=== PATIENT | female | born 1970 | race Caucasian/White ===

== ENCOUNTER → 2021-07-06 15:45 | Outpatient (BNVA) | payer OTHER, SELFPAY | PROVIDERS: Family Provider Family Medicine; Visit Provider Nurse Practitioner | DX: R10.9 Unspecified abdominal pain (principal) | CPT/HCPCS: 82150; 83690; 84450; 84460; 85025 ==

== ENCOUNTER 2021-07-19 13:23 | Outpatient (CLI) | payer OTHER, SELFPAY ==
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
== END 2021-07-19 13:24 | disposition home or self-care (01) ==
PROVIDERS: PCP Family Medicine; Visit Provider Family Medicine
DX: M47.812 Spondylosis without myelopathy or radiculopathy, cervical region (principal); Z87.828 Personal history of other (healed) physical injury and trauma; M47.813 Spondylosis without myelopathy or radiculopathy, cervicothoracic region; M25.78 Osteophyte, vertebrae
CPT/HCPCS: 72125

== ENCOUNTER → 2021-08-03 13:37 | Outpatient (BNVA) | payer OTHER, SELFPAY | PROVIDERS: PCP Family Medicine; Referring Provider Family Medicine; Visit Provider Orthopaedic Surgery | DX: M47.812 Spondylosis without myelopathy or radiculopathy, cervical region (principal) | CPT/HCPCS: 72050 ==

== ENCOUNTER → 2021-08-22 15:34 | Outpatient (BNVA) | payer OTHER, SELFPAY | PROVIDERS: PCP Family Medicine; Visit Provider Emergency Medicine | DX: Z20.822 Contact with and (suspected) exposure to COVID-19 (principal) | CPT/HCPCS: 87635 ==

== ENCOUNTER 2021-09-06 00:20 | Emergency (ER) | payer OTHER, SELFPAY ==
[2021-09-06 00:29] VITALS: BP 133/82; PULSE 102; RESP 16; TEMP 36.2; O2SAT 100; BMI 32.9
--- NOTE | 2021-09-06 01:57 | W.ED.ABDPA2 ---
HPI - Abdominal Pain General: Chief Complaint: Abdominal Pain Stated Complaint: severe abd pain, vomiting Time Seen by Provider: 09/06/21 01:32 Source: patient Mode of arrival: ambulatory Limitations: no limitations History of Present Illness: HPI narrative: 51-year-old female states she has been having chronic abdominal pain for 3 years. She states that she has any sudden sharp pains in her right upper abdomen the last roughly an hour usually has a vomiting episode that resolved states she had a pain today that was severe doubled her over states she did vomit only here and her pain is since resolved she denies any pain currently she states she saw Dr. Smith in the past had a cholecystectomy roughly 3 years ago she is also had an EGD normal stable throughout the cause of her pain. She denies any diarrhea. Associated Symptoms: Denies chills, dysuria and fever(s) Review of Systems Const: Denies: fever(s), chills, body aches or change in appetite Eyes: Denies: blurry vision or eye discomfort ENMT: Denies: throat pain or dental pain Card: Denies: chest pain Resp: Denies: dyspnea GI: Reports: abdominal pain : Denies: dysuria Musc: Denies: neck pain or back pain Skin/Breast: Denies: rash Neuro: Denies: headache(s) Psych: Denies: depression Abdiel/Lymph: Denies: easy bruising All/Imm: Denies: urticaria PFSH ED PFSH: Medical History Degenerative joint disease of cervical spine Right upper quadrant abdominal pain Surgical History History of cholecystectomy History of lumpectomy Social History Smoking and tobacco status: never smoked Alcohol intake: never Adopted: No Caregiver/support person: Yes Lives independently: Yes Household members: spouse Housing: House Marital status: Number of children: 2 Highest education level completed: Professional Degree (, DO, TENA, DVM, DDS, DPM, etc) Current occupational status: employed Current gender identity: Female Physical Exam Const: COMMON NORMALS: no acute distress, patient oriented x3 and healthy appearing HENMT: COMMON NORMALS: normocephalic and atraumatic HEAD & SCALP: normocephalic and atraumatic Eye: COMMON NORMALS: Equal, round and reactive pupils present and EOMs intact bilaterally PUPIL: Yes Equal, round and reactive pupils present Neck/C-Spine: COMMON NORMALS: full ROM and supple Chest: COMMONS NORMALS: normal inspection of the chest and normal palpation of entire chest wall Resp: COMMON NORMALS: normal respiratory effort, No retractions, No use of accessory muscles and clear to auscultation bilaterally AUSCULTATION: clear to auscultation bilaterally Cardio: COMMON NORMALS: regular rate, regular rhythm and No murmurs present (Cardio) RATE: regular rate RHYTHM: regular rhythm GI: COMMON NORMALS: Normal to inspection, nondistended, normoactive bowel sounds present, Soft to palpation, non-tender and no masses PALPATION: Yes Soft to palpation Extremity: COMMON NORMALS: normal to inspection and full ROM Neuro: COMMON NORMALS: patient oriented x3, moves all extremities and no focal motor deficits Psych: COMMON NORMALS: mental status grossly normal, Normal thought process present and cooperative THOUGHT PROCESS: Normal thought process present Skin: COMMON NORMALS: no rashes or lesions noted and no wounds GENERAL SKIN EXAM: no rashes or lesions noted Course Vital Signs: Vital signs: Vital Signs Temperature 97.2 F L 09/06/21 00:29 Pulse Rate 102 H 09/06/21 00:29 Respiratory Rate 16 09/06/21 00:29 Blood Pressure 133/82 09/06/21 00:29 Pulse Oximetry 100 12 00:29 MDM - Abdominal Pain MDM Narrative: Medical decision making narrative: Patient presents with abdominal pain has been chronic in nature for over 3 years patient is refusing lab draws or any imaging at this time she states her pain is completely resolved states she just like a referral back to Dr. Smith I tried to talk her into at least blood work but she states she is no longer in pain she been doing at the 3 areas and now she is pain-free she rather go home and follow-up with surgeon we'll put in a referral to Dr. Smith she is return if worsening she understands agrees to plan. Discharge Plan Discharge Patient Disposition: Home Clinical Impression: Abdominal pain Qualifiers: Abdominal location: generalized Qualified Code(s): R10.84 - Generalized abdominal pain Condition: Stable Prescriptions: No Action cold meds PO RF: 0 albuterol sulfate 90 mcg/actuation HFA aerosol inhaler 2 puff inhalation Q6H PRN (Reason: shortness of breath or wheezing) Qty: 8.5 RF: 0 cyclobenzaprine 10 mg tablet 10 mg PO BID 30 Days Qty: 60 RF: 5 Discharge Orders: Discharge ED (Routine); Ordered 09/06/21 Ordered By: Mikayla Strauss Referrals: Edwar Vora MD [Primary Care Provider] - Augusto Smith MD [Physician] - 1-3 days Discharge Diet: Advance as tolerated Discharge Activity: Resume usual activity Patient Instructions: Abdominal Pain (ED) Coding Level of Care Code ED Cad Detailer for Chg Fwd Exam Comprehensive
[2021-09-06 02:32] VITALS: BP 133/82; PULSE 102; RESP 16; TEMP 36.2; O2SAT 100
== END 2021-09-06 02:35 | disposition home or self-care (01) ==
PROVIDERS: Emergency Provider Emergency Medicine; PCP Family Medicine
DX: R10.84 Generalized abdominal pain (principal)
CPT/HCPCS: 99281

== ENCOUNTER 2021-09-11 08:04 | Outpatient (CLI) | payer OTHER, SELFPAY ==
--- NOTE | 2021-09-11 08:00 | MR_ITS ---
WS: [id number] MRI CERVICAL SPINE NONCONTRAST TECHNIQUE: Sagittal T1, T2 and STIR imaging. Axial T2, gradient, and fiesta imaging. CLINICAL INFORMATION: Z87.828 - Personal history of other (healed) physical inj... COMPARISON: CT July 19, 2021 FINDINGS: Some images degraded by motion artifact. Normal cervical alignment. Cord signal is normal. No high-grade central canal stenosis. C2-C3: Normal. C3-C4: Mild left and no significant right foraminal narrowing. Spinal canal is patent. Mild facet art hropathy. C4-C5: Mild disc osteophytic ridging. Mild left foraminal narrowing. Mild facet arthropathy. Spinal c anal is patent. C5-C6: Mild disc osteophyte complex with endplate ridging. Mild bilateral bony foraminal narrowing. M ild facet arthropathy. Spinal canal is patent. C6-C7: Mild left and no significant right foraminal narrowing. Spinal canal is patent. C7-T1: Normal. Visualized brain stem structures: Normal. Prevertebral soft tissues: Normal. MR/MR cervical spin wo con* [id number] IMPRESSION: 1. Normal cervical alignment. No high-grade central canal narrowing. Cord sign al is normal. 2. Minimal tiny central disc osteophyte complexes at C4-C5 and C5-C6. Spinal c anal is patent. 3. Mild bony foraminal narrowing worse at left C3-4, left C4-5, bilateral C5-6 . 4. Mild to moderate facet arthropathy C4-C5 and C5-C6.
== END 2021-09-11 08:05 | disposition home or self-care (01) ==
LOC: RADSHAW 08:07
PROVIDERS: PCP Family Medicine; Visit Provider Orthopaedic Surgery
DX: M47.812 Spondylosis without myelopathy or radiculopathy, cervical region (principal); Z87.828 Personal history of other (healed) physical injury and trauma; M25.78 Osteophyte, vertebrae
CPT/HCPCS: 72141

== ENCOUNTER 2021-10-18 06:00 | Outpatient (RCR) | payer OTHER, SELFPAY | END 2021-10-30 23:59 | disposition home or self-care (01) | LOC: APT 06:00 | PROVIDERS: PCP Family Medicine; Referring Provider Physician Assistant; Visit Provider Physician Assistant | DX: M54.50 Low back pain, unspecified (principal) | CPT/HCPCS: 97110; 97140; 97163 ==

== ENCOUNTER → 2022-11-12 10:51 | Outpatient (BNVA) | payer OTHER, SELFPAY | PROVIDERS: PCP Family Medicine; Visit Provider Nurse Practitioner Family | DX: M25.40 Effusion, unspecified joint (principal); R29.898 Other symptoms and signs involving the musculoskeletal system | CPT/HCPCS: 80053; 80061; 84443; 85025; 85651; 86140; 86160; 86162; 86235; 86255; 86376; 86431 ==

== ENCOUNTER → 2022-12-24 12:25 | Outpatient (BNVA) | payer OTHER, SELFPAY | PROVIDERS: PCP Family Medicine; Visit Provider Internal Medicine Rheumatology | DX: M19.90 Unspecified osteoarthritis, unspecified site (principal); Z79.899 Other long term (current) drug therapy; Z11.59 Encounter for screening for other viral diseases | CPT/HCPCS: 36415; 86200; 86480; 86704; 86803; 87340 ==

== ENCOUNTER → 2023-07-17 08:33 | Outpatient (BNVA) | payer OTHER, SELFPAY | PROVIDERS: PCP Family Medicine; Visit Provider Internal Medicine Rheumatology | DX: M19.90 Unspecified osteoarthritis, unspecified site (principal); Z79.899 Other long term (current) drug therapy; M06.041 Rheumatoid arthritis without rheumatoid factor, right hand; M06.042 Rheumatoid arthritis without rheumatoid factor, left hand | CPT/HCPCS: 80076; 82306; 82565; 85025; 86140 ==

== ENCOUNTER 2023-08-13 12:57 | Outpatient (CLI) | payer OTHER, SELFPAY ==
--- NOTE | 2023-08-13 13:00 | MM_ITS ---
WS: [id number] BILATERAL 3D TOMOSYNTHESIS DIGITAL SCREENING MAMMOGRAPHY WITH CAD CLINICAL INFORMATION: SCREENING HISTORY: Screening mammogram. No current complaints. COMPARISON: 2018 TECHNIQUE: Bilateral CC and MLO views. FINDINGS: Scattered fibroglandular densities bilaterally. No suspicious focal mass, asymmetry, calcifications, or architectural distortion. No evidence of malignancy. IMPRESSION: MM/[place] [id number] BI-RADS: 1-Negative FOLLOW UP: 1 Year Follow-up Recommend return to annual screening mammography.
== END 2023-08-13 12:58 | disposition home or self-care (01) ==
LOC: MOBLMAM 13:05
PROVIDERS: PCP Nurse Practitioner Family; Visit Provider Nurse Practitioner Family
DX: Z12.31 Encounter for screening mammogram for malignant neoplasm of breast (principal)
CPT/HCPCS: 77063; 77067

== ENCOUNTER → 2023-09-18 14:51 | Outpatient (BNVA) | payer OTHER, SELFPAY | PROVIDERS: PCP Nurse Practitioner Family; Visit Provider Internal Medicine Rheumatology | DX: Z79.899 Other long term (current) drug therapy (principal); M06.041 Rheumatoid arthritis without rheumatoid factor, right hand; M06.042 Rheumatoid arthritis without rheumatoid factor, left hand; R76.8 Other specified abnormal immunological findings in serum; M47.812 Spondylosis without myelopathy or radiculopathy, cervical region | CPT/HCPCS: 36415; 80076; 82565; 85025; 86140 ==

== ENCOUNTER 2023-09-26 12:27 | Emergency (ER) | payer OTHER, SELFPAY ==
[2023-09-26] VITALS (8 sets, daily range): BP systolic 121–140; BP diastolic 67–105; PULSE 81–107; RESP 14–30; TEMP 36.7; O2SAT 100; BMI 29.2
--- NOTE | 2023-09-26 12:43 | CTR_ITS ---
PROCEDURE INFORMATION: Exam: CT Abdomen And Pelvis With Contrast Exam date and time: 09/26/2023 1:39 PM Age: 53 years old Clinical indication: Abdominal pain; Prior surgery; Surgery date: 6+ months; Surgery type: Christina; Additional info: Luq abd pain n/v TECHNIQUE: Imaging protocol: Computed tomography of the abdomen and pelvis with contrast. Radiation optimization: All CT scans at this facility use at least one of these dose optimization techniques: automated exposure control; mA and/or kV adjustment per patient size (includes targeted exams where dose is matched to clinical indication); or iterative reconstruction. Contrast material: OMNI 350; Contrast volume: 100 ml; Contrast route: INTRAVENOUS (IV); REPORTING DATA: Count of CT and Cardiac NM exams in prior 12 months: This patient has received 0 known CTs and 0 known cardiac nuclear medicine studies in the 12 months prior to the current study. COMPARISON: US gall bladder [id number] 08/24/2019 1:27 PM RADIATION DOSE METRICS: Total DLP (mGy-cm): 413 FINDINGS: Liver: Tiny hepatic cysts. Gallbladder and bile ducts: Previous cholecystectomy. Pancreas: Normal. No ductal dilation. Spleen: Lobulated 1.7 cm hypodense lesion centrally in the spleen with several tiny additional hypodensities. Adrenal glands: Normal. No mass. Kidneys and ureters: Mildly dilated left renal collecting system and pelvis down to the mid ureter where there is a stone measuring 8 mm. Mild left perinephric stranding. No definite intrarenal stones. Stomach and bowel: Unremarkable. No obstruction. No mucosal thickening. Appendix: No evidence of appendicitis. Intraperitoneal space: Unremarkable. No free air. No significant fluid collection. Vasculature: Unremarkable. No abdominal aortic aneurysm. Lymph nodes: Unremarkable. No enlarged lymph nodes. Urinary bladder: Unremarkable as visualized. Reproductive: Unremarkable as visualized. Bones/joints: Mild nonacute L1 compression fracture. Soft tissues: Unremarkable. CT/CT abdomen pelvis w con* [id number] IMPRESSION: 1. Mildly dilated left renal collecting system and pelvis down to the mid ureter where there is a stone measuring 8 mm. 2. Lobulated 1.7 cm hypodense lesion centrally in the spleen with several tiny additional hypodensities. Recommend ultrasound to confirm. Concern for metastatic disease, lymphoma.
[2023-09-26] MEDS: ketorolac 30 mg/mL INJ IVP (12:49)
[2023-09-26] MEDS: metoclopramide 5 mg/mL SDV 2 mL 10 MG IVP (12:50)
[2023-09-26] MEDS: sodium chloride 0.9% 1,000 ML 999 ML IV (12:51)
[2023-09-26 12:53] LABS: Basophils % 0.3 %; Eosinophils % 0.4 %; Hematocrit 40.7 % (36-47); Lymphocytes # 1.2 10^3/uL (0.8-4.8); Mean Corpuscular HGB Conc 34.6 g/dL (30-55); Mean Corpuscular Hemoglobin 28.4 pg (27-33); Mean Corpuscular Volume 82.1 fl (85-98); Mean Platelet Volume 9.5 fL (7.4-10.4); Monocytes % 11.1 %; Neutrophils # 6.97 10^3/uL (1.8-7.7); Nucleated Red Blood Cells % 0 %; Platelet Count 200 10^3/cmm (157-399); Red Blood Count 4.96 10^6/uL (3.85-5.65); Red Cell Distribution Width 12.3 % (12.1-15.1)
[2023-09-26] MEDS: iohexol 350 mg/mL 500 mL Btl (per mL) IV (13:03)
[2023-09-26 13:09] LABS: Alanine Aminotransferase 16 U/L (0-33); Albumin Level 4.4 g/dL (3.5-5.2); Alkaline Phosphatase 81 U/L (35-105); Anion Gap 17.4 (5-19); Aspartate Amino Transferase 22 U/L (0-32); Blood Urea Nitrogen 16 mg/dL (6-20); Calcium 9.9 mg/dL (8.5-10.5); Carbon Dioxide 24 mmol/L (22-29); Chloride 98 mmol/L (98-107); Globulin 2.8 g/dL (1.3-4.6); Glomerular Filtration Rate 51.8 mL/min (90-130); Glucose 117 mg/dL (65-115); Lipase 16 U/L (13-60); Osmolality Calculated 284 mOsm/kg (285-295); Potassium 3.4 mmol/L (3.5-5.1); Sodium 136 mmol/L (136-145); Total Bilirubin 0.4 mg/dL (0.15-1.2); Total Protein 7.2 g/dL (6.6-8.7)
--- NOTE | 2023-09-26 13:16 | ED_ITS ---
HPI - Abdominal Pain 2 General: Chief Complaint: Abdominal Pain Stated Complaint: coming in and out of responsivness Time Seen by Provider: 09/26/23 12:37 History of Present Illness: Patient presents to the ER for evaluation of abdominal pain that began last night. Patient states the pain has been going off and on for the last 10 years has been multiple specialist and been scoped multiple times nobody has been able to figure out what is going on the last CT scan was done about a month ago which showed a bunch of benign lesions and a kidney stone on the left side. This pain currently is on the left upper quadrant. Patient states about the only thing that makes it better is when he pushes on it really hard to makes her vomit and then she feels better. Patient states the pain does not always in the same spot it is now but is always on the left side. There is nothing known that brings the pain on or makes it totally go away. When the patient was on Mounjaro the pain was significantly less consistently. However lots of pressure and vomiting sometimes improves it. It is a dull achy pain. Review of Systems 2 General: Reports: 10 or more systems reviewed and unremarkable except in HPI and below PFSH ED 2 PFSH: Medical History Seronegative rheumatoid arthritis of both hands High risk medication use Inflammatory arthritis Positive IRVING (antinuclear antibody) Obesity (BMI 30.0-34.9) Right upper quadrant abdominal pain Degenerative joint disease of cervical spine Surgical History History of cholecystectomy History of lumpectomy Family History Other CAD (coronary artery disease) Cancer Diabetes Hypertension Denies family history of Rheumatoid arthritis Lupus Chronic kidney disease (CKD) Lung disease Stroke Social History Smoking and tobacco/nicotine status: never used tobacco/nicotine Alcohol intake: never Substance/Drug Use: never Adopted: No Caregiver/support person: Yes Lives independently: Yes Household members: spouse Housing: House Marital status: Number of children: 2 Highest education level completed: Professional Degree (, , TENA, DVM, DDS, DPM, etc) Current occupational status: employed Current gender identity: Female Physical Exam 2 Const: COMMON NORMALS: no acute distress, average body habitus, patient oriented x3, no limitations, healthy appearing, alert and well nourished HENMT: COMMON NORMALS: normocephalic, atraumatic, hearing grossly normal bilaterally, external ears normal, Normal external nose present, moist oral mucous membranes and oropharynx normal HEAD & SCALP: normocephalic and atraumatic NOSE: Normal external nose present EXTERNAL EAR: Yes external ears normal Neck/C-Spine: COMMON NORMALS: full ROM, no lymphadenopathy, supple, no meningeal signs, no JVD and Thyroid normal THYROID: Thyroid normal Chest: COMMONS NORMALS: normal inspection of the chest and normal palpation of entire chest wall Resp: COMMON NORMALS: normal respiratory effort, No retractions, No use of accessory muscles and clear to auscultation bilaterally AUSCULTATION: clear to auscultation bilaterally Cardio: COMMON NORMALS: no JVD, regular rate, regular rhythm, S1 normal heart sound present, S2 normal heart sound present, No gallops present (Cardio), No clicks present (Cardio), No murmurs present (Cardio) and No rub (Cardio) R ATE: regular rate RHYTHM: regular rhythm HEART SOUNDS: S1 normal heart sound present and S2 normal heart sound present GI: COMMON NORMALS: Normal to inspection, nondistended, normoactive bowel sounds present, Soft to palpation, No hepatosplenomegaly present and no masses; negative for non-tender (Diffusely mildly tender) PALPATION: Yes Soft to palpation and Yes No hepatosplenomegaly present Neuro: COMMON NORMALS: patient oriented x3 SENSORIUM/ORIENTATION: Yes alert MENINGEAL SIGNS: Yes no meningeal signs Course 2 Vital Signs: Vital signs: Vital Signs Temperature 98.0 F 09/26/23 12:32 Pulse Rate 103 H 09/26/23 15:40 Respiratory Rate 16 09/26/23 15:40 Blood Pressure 130/73 09/26/23 15:40 Pulse Oximetry 100 09/26/23 15:40 Oxygen Delivery Me thod Room Air 09/26/23 15:40 Oxygen Flow Rate 2 09/26/23 13:04 MDM - Abdominal Pain Medical Decision Making Patient comes to the ER with abdominal pain it has been going off and on for approximately 10 years. Patient been worked up in multiple fashions by multiple people multiple times and no one really knows what is going on. Patient had lab work done here which included CBC CMP C-reactive protein lipase urinalysis all of which was essentially benign patient also had a abdomen pelvis CT with contrast showed 8 mm stone in the left renal collecting system, showed several hypodensities in the spleen recommended ultrasound 20 ultrasound at but is unable to further characterize it so he wanted a follow-up CT and/or MRI. Patient was given Toradol 30 mg IV and Reglan 10 mg IV and a liter normal saline. This is calm the patient's pain down. Patient be discharged to follow- up with her PCP for further evaluation and treatment. Differential Diagnosis Likely abdominal pain; Unlikely acute appendicitis, calculus of kidney, constipation, diverticulitis, endometriosis, gastroenteritis, pancreatitis or small bowel obstruction Medical Records I reviewed the patient's medical records. Lab Data I reviewed the patient's lab results. 09/26/23 12:45 09/26/23 12:45 Labs/Radiology: Radiology Impressions Abdomen/Pelvis CT 09/26/23 12:43 IMPRESSION: 1. Mildly dilated left renal collecting system and pelvis down to the mid ureter where there is a stone measuring 8 mm. 2. Lobulated 1.7 cm hypodense lesion centrally in the spleen with several tiny additional hypodensities. Recommend ultrasound to confirm. Concern for metastatic disease, lymphoma. Abdomen Ultrasound 09/26/23 14:28 IMPRESSION: Ultrasound unable to further characterize splenic lesions. Differential diagnosis remains metastatic disease, lymphoma with consideration of hemangioma as well versus infectious etiology. On a nonurgent basis would recommend MRI or follow-up CT. Laboratory Results WBC 9.30 10^3/uL (3.29-11.43) 09/26/23 12:45 RBC 4.96 10^6/uL (3.85-5.65) 09/26/23 12:45 Hgb 14.10 g/dL (11.27-16.99) 09/26/23 12:45 Hct 40.7 % (36-47) 09/26/23 12:45 MCV 82.1 fl (85-98) L 09/26/23 12:45 MCH 28.4 pg (27-33) 09/26/23 12:45 MCHC 34.6 g/dL (30-55) 09/26/23 12:45 RDW 12.3 % (12.1-15.1) 09/26/23 12:45 Plt Count 200 10^3/cmm (157-399) 09/26/23 12:45 MPV 9.5 fL (7.4-10.4) 09/26/23 12:45 Neut % (Auto) 75.0 % 09/26/23 12:45 Lymph % (Auto) 13.0 % 09/26/23 12:45 Toole % (Auto) 11.1 % 09/26/23 12:45 Eos % (Auto) 0.4 % 09/26/23 12:45 Baso % (Auto) 0.3 % 09/26/23 12:45 Neut # (Auto) 6.97 10^3/uL (1.8-7.7) 09/26/23 12:45 Lymph # (Auto) 1.2 10^3/uL (0.8-4.8) 09/26/23 12:45 Toole # (Auto) 1.0 10^3/uL (0.2-0.9) H 09/26/23 12:45 Eos # (Auto) 0.0 10^3/uL (0.0-0.8) 09/26/23 12:45 Baso # (Auto) 0.0 10^3/uL (0.0-0.1) 09/26/23 12:45 Nucleated RBC % (auto) 0 % 09/26/23 12:45 Nucleated RBCs # 0.0 /100WBC 09/26/23 12:45 Sodium 136 mmol/L (136-145) 09/26/23 12:45 Potassium 3.4 mmol/L (3.5-5.1) L 09/26/23 12:45 Chloride 98 mmol/L (98-107) 09/26/23 12:45 Carbon Dioxide 24 mmol/L (22-29) 09/26/23 12:45 Anion Gap 17.4 (5-19) 09/26/23 12:45 BUN 16 mg/dL (6-20) 09/26/23 12:45 Creatinine 1.1 mg/dL (0.5-0.9) H 09/26/23 12:45 GFR Calculation 51.8 mL/min (90-130) L 09/26/23 12:45 Glucose 117 mg/dL (65-115) H 09/26/23 12:45 Calculated Osmolality 284 mOsm/kg (285-295) L 09/26/23 12:45 Calcium 9.9 mg/dL (8.5-10.5) 09/26/23 12:45 Magnesium 2.0 mg/dL (1.7-2.3) 09/26/23 12:45 Total Bilirubin 0.4 mg/dL (0.15-1.2) 09/26/23 12:45 AST 22 U/L (0-32) 09/26/23 12:45 ALT 16 U/L (0-33) 09/26/23 12:45 Alkaline Phosphatase 81 U/L (35-105) 09/26/23 12:45 C-Reactive Protein 3.0 mg/L (0.0-4.9) 09/26/23 12:45 Total Protein 7.2 g/dL (6.6-8.7) 09/26/23 12:45 Albumin 4.4 g/dL (3.5-5.2) 09/26/23 12:45 Globulin 2.8 g/dL (1.3-4.6) 09/26/23 12:45 Lipase 16 U/L (13-60) 09/26/23 12:45 Urine Color Straw (Yellow) 09/26/23 15:36 Urine Appearance Clear (CLEAR) 09/26/23 15:36 Urine pH 7 (5-7) 09/26/23 15:36 Ur Specific [place] 1.005 (1.005-1.030) 09/26/23 15:36 Urine Protein Neg (Negative) 09/26/23 15:36 Urine Glucose (UA) Norm (Normal) 09/26/23 15:36 Urine Ketones Negative (Negative) 09/26/23 15:36 Urine Blood Neg (Negative) 09/26/23 15:36 Urine Nitrate Negative (Negative) 09/26/23 15:36 Urine Bilirubin Neg (Negative) 09/26/23 15:36 Urine Urobilinogen Norm mg/dL (Negative) 09/26/23 15:36 Ur Leukocyte Esterase Negative (Negative) 09/26/23 15:36 All radiology interpretation(s) finalized by discharge Discharge Plan Discharge Patient Disposition: Home Clinical Impression: Abdominal pain Condition: Stable Prescriptions: No Action hydroxychloroquine 200 mg tablet 200 mg PO BID Qty: 180 1RF prednisone 5 mg tablet 5 mg PO DAILY Qty: 90 1RF cyclobenzaprine 10 mg tablet 10 mg PO BID omeprazole 20 mg capsule,delayed release(DR/EC) 20 mg PO DAILY Pepcid 20 mg Tablet 20 mg PO DAILY Discharge Orders: Discharge ED (Routine); Ordered 09/26/23 Ordered By: Gato Grissom Referrals: Estrella Littlejohn FNP-C [Primary Care Provider] - 1 week Patient Instructions: Abdominal Pain (ED) Coding Level of Care Code ED Illuminating Engineer for Errol Brooks
--- NOTE | 2023-09-26 14:28 | USR_ITS ---
PROCEDURE INFORMATION: Exam: US Abdomen; Limited Exam date and time: 09/26/2023 2:54 PM Age: 53 years old Clinical indication: Abdominal pain; Other: Luq; Additional info: Abnormal speen per CT, abd pain luq TECHNIQUE: Imaging protocol: Real time ultrasound of the abdomen with image documentation. Limited exam focused on the region of clinical interest. COMPARISON: CT abdomen pelvis w con* [id number] 09/26/2023 1:39 PM FINDINGS: Images focused on spleen no splenomegaly. Spleen measures up to 10.5 cm. No intrinsic lesion seen other than a punctate splenic granuloma. US/US abdomen limited [id number] IMPRESSION: Ultrasound unable to further characterize splenic lesions. Differential diagnosis remains metastatic disease, lymphoma with consideration of hemangioma as well versus infectious etiology. On a nonurgent basis would recommend MRI or follow-up CT.
[2023-09-26 15:49] LABS: Add Urine Microscopic? NO; Charge for UA Resulting for Rev
[2023-09-26 15:58] LABS: Bilirubin Urine Neg (Negative); Blood Urine Neg (Negative); Glucose Urine UA Norm (Normal); Ketones Urine Negative (Negative); Leukocyte Esterase Urine Negative (Negative); Nitrate Urine Negative (Negative); Protein Urine Neg (Negative); Specific Gravity, Urine 1.005 (1.005-1.030); Urine Appearance Clear (CLEAR); Urine Color Straw (Yellow); Urobilinogen Urine Norm (Negative); pH Urine 7 (5-7)
== END 2023-09-26 16:14 | disposition home or self-care (01) ==
PROVIDERS: Emergency Provider Emergency Medicine; PCP Nurse Practitioner Family
DX: R10.9 Unspecified abdominal pain (principal)
CPT/HCPCS: 74177; 76705; 80053; 81003; 83690; 83735; 85025; 86140; 96361; 96374; 96375; 99285; J1885; J2765; J7030; Q9967

== ENCOUNTER → 2024-01-22 13:40 | Outpatient (BNVA) | payer OTHER, SELFPAY | PROVIDERS: PCP Nurse Practitioner Family; Visit Provider Internal Medicine Rheumatology | DX: Z79.899 Other long term (current) drug therapy (principal); M06.041 Rheumatoid arthritis without rheumatoid factor, right hand; M06.042 Rheumatoid arthritis without rheumatoid factor, left hand; R76.8 Other specified abnormal immunological findings in serum; M47.812 Spondylosis without myelopathy or radiculopathy, cervical region | CPT/HCPCS: 36415; 80076; 82565; 85025; 86140 ==

== ENCOUNTER 2024-05-06 14:22 | Outpatient (CLI) | payer OTHER, SELFPAY ==
--- NOTE | 2024-05-06 15:30 | CT_ITS ---
WS: [id number] CT ABDOMEN AND PELVIS WITH CONTRAST HISTORY: D73.89 - Other diseases of spleen TECHNIQUE: Imaging performed of the abdomen and pelvis with IV contrast. Single phase imaging of the abdomen. Coronal and sagittal reformats are submitted. All CT scans at [facility] use at [facility] one of these dose optimization techniques: automated exposure control; mA and/or kV adjustment per patient size (includes targeted exams where dose is matched to clinical indication); or iterative re construction. IV CONTRAST: Omnipaque 350; 100 mL IV. Oral contrast: Yes. DLP: 304.40 mGy.cm COMPARISON: 09/26/2023 CT, ultrasound 09/26/2023. Lower thorax: Lung bases are clear. Heart is normal size. No hiatal hernia. Liver/biliary system: Normal size liver. There are a few scattered very tiny low-attenuation masses w ithin the liver which are too small to characterize and probably representing small cysts. These were present on the prior study. No bile duct dilatation. Gallbladder: Prior cholecystectomy. Pancreas: Normal size pancreas and pancreatic duct. No adjacent inflammation. Spleen: Normal size spleen. There are few scattered areas of decreased attenuation within the spleen which were described also on the prior study from 09/26/2023 without significant progression taking i nto consideration the difference in timing after injection. The largest nodule in the central spleen is 1.3 x 1.1 cm. I suspect these are probably small hemangiomas. No splenomegaly. Adrenal glands: Normal. Right kidney: Normal. Left kidney: Normal. Aorta: Normal. Lymphadenopathy: None. Free fluid: None. GI tract: Well distended stomach. No small bowel obstruction. Normal appendix. No obstruction of the colon. No significant diverticular disease. Abdominal wall: Fat containing umbilical hernia. Pelvis: Uterus is midline. Small amount of fluid along the endometrial canal. No adnexal mass. Bones: Unremarkable. CT/CT abdomen pelvis w con* [id number] IMPRESSION: 1. Reidentified are the indeterminant low-attenuation masses within the spleen without increase in size or number. The largest lesion measures 1.3 x 1.1 cm. Suspect these are probably hemangiomas. For continued surveillance and confirma tion these are benign consider additional 6-month follow-up CT. That CT should be ordered with portal venous and 3-minute delayed imaging through the abdomen. This may help confirm whether these are truly hemangiomas. 2. Spleen remains normal size. 3. No adenopathy in the abdomen or pelvis. No ascites. 4. Prior cholecystectomy. 5. Tiny hepatic cysts.
[2024-05-06] MEDS: iohexol 350 mg/mL 500 mL Btl (per mL) PO (15:34)
[2024-05-06] MEDS: iohexol 350 mg/mL 500 mL Btl (per mL) IV (15:58)
== END 2024-05-06 14:23 | disposition home or self-care (01) ==
LOC: RAD 14:22
PROVIDERS: PCP Nurse Practitioner Family; Visit Provider Nurse Practitioner Family
DX: D73.89 Other diseases of spleen (principal); K59.09 Other constipation; R10.9 Unspecified abdominal pain; K76.89 Other specified diseases of liver; Z98.890 Other specified postprocedural states
CPT/HCPCS: 74177; Q9967

== ENCOUNTER 2024-05-12 16:18 | Oncology outpatient (recurring) (ONCR) | payer OTHER, SELFPAY ==
[2024-05-12 17:27] LABS: Basophils % 0.4 %; Eosinophils # 0.1 10^3/uL (0.0-0.8); Eosinophils % 1.2 %; Hematocrit 37.4 % (36-47); Lymphocytes # 1.4 10^3/uL (0.8-4.8); Lymphocytes % 27.7 %; Mean Corpuscular HGB Conc 33.7 g/dL (30-55); Mean Corpuscular Hemoglobin 28.5 pg (27-33); Mean Corpuscular Volume 84.6 fl (85-98); Mean Platelet Volume 9.7 fL (7.4-10.4); Monocytes # 0.6 10^3/uL (0.2-0.9); Monocytes % 11.7 %; Neutrophils # 3.01 10^3/uL (1.8-7.7); Neutrophils % 58.6 %; Nucleated Red Blood Cells % 0 %; Platelet Count 179 10^3/cmm (157-399); Red Blood Count 4.42 10^6/uL (3.85-5.65); Red Cell Distribution Width 12.5 % (12.1-15.1); White Blood Count 5.13 10^3/uL (3.29-11.43)
[2024-05-12 17:30] LABS: Erythrocyte Sedimentation Rate 2 mm/hr (0-15)
[2024-05-12 17:58] LABS: LAB Peripheral Smear Sent for Review
[2024-05-12 18:17] LABS: Alanine Aminotransferase 10 U/L (0-33); Albumin Level 4.2 g/dL (3.5-5.2); Alkaline Phosphatase 59 U/L (35-105); Anion Gap 12.2 (5-19); Aspartate Amino Transferase 15 U/L (0-32); Blood Urea Nitrogen 11 mg/dL (6-20); Calcium 9.2 mg/dL (8.5-10.5); Carbon Dioxide 30 mmol/L (22-29); Chloride 104 mmol/L (98-107); Globulin 2.5 g/dL (1.3-4.6); Glomerular Filtration Rate 74.7 mL/min (90-130); Glucose 90 mg/dL (65-115); Iron 43 ug/dL (37-145); Lactate Dehydrogenase 230 U/L (135-214); Osmolality Calculated 293 mOsm/kg (285-295); Percent Saturation 18.6 % (20-50); Potassium 4.2 mmol/L (3.5-5.1); Sodium 142 mmol/L (136-145); Thyroid Stimulating Hormone 2.58 uIU/mL (0.27-4.20); Total Bilirubin 0.3 mg/dL (0.15-1.2); Total Iron Binding Capacity 231 mcg/dl; Total Protein 6.7 g/dL (6.6-8.7); Unsaturated Iron Binding 188 ug/dL (112-347); Vitamin B12 611 pg/mL (232-1245)
== END 2024-05-30 23:55 | disposition home or self-care (01) ==
PROVIDERS: PCP Nurse Practitioner Family; Visit Provider Internal Medicine Medical Oncology
DX: R93.5 Abnormal findings on diagnostic imaging of other abdominal regions, including retroperitoneum (principal); R10.9 Unspecified abdominal pain; R53.83 Other fatigue; M06.041 Rheumatoid arthritis without rheumatoid factor, right hand; M06.042 Rheumatoid arthritis without rheumatoid factor, left hand; Z53.9 Procedure and treatment not carried out, unspecified reason
CPT/HCPCS: 36415; 80053; 82607; 83540; 83550; 83615; 84443; 85025; 85651; 86140

== ENCOUNTER 2024-11-26 09:41 | Oncology outpatient (recurring) (ONCR) | payer OTHER, SELFPAY ==
[2024-11-26 10:29] LABS: Basophils % 0.6 %; Eosinophils # 0.1 10^3/uL (0.0-0.8); Eosinophils % 1.2 %; Hematocrit 36.6 % (36-47); Lymphocytes # 1.3 10^3/uL (0.8-4.8); Lymphocytes % 25.6 %; Mean Corpuscular HGB Conc 33.6 g/dL (30-55); Mean Corpuscular Hemoglobin 27.7 pg (27-33); Mean Corpuscular Volume 82.4 fl (85-98); Mean Platelet Volume 9.3 fL (7.4-10.4); Monocytes # 0.6 10^3/uL (0.2-0.9); Monocytes % 10.7 %; Neutrophils # 3.18 10^3/uL (1.8-7.7); Neutrophils % 61.7 %; Nucleated Red Blood Cells % 0 %; Platelet Count 178 10^3/cmm (157-399); Red Blood Count 4.44 10^6/uL (3.85-5.65); Red Cell Distribution Width 12.2 % (12.1-15.1); White Blood Count 5.15 10^3/uL (3.29-11.43)
[2024-11-26 10:59] LABS: Alanine Aminotransferase 10 U/L (0-33); Alkaline Phosphatase 58 U/L (35-105); Anion Gap 9.8 (5-19); Aspartate Amino Transferase 14 U/L (0-32); Blood Urea Nitrogen 11 mg/dL (6-20); Calcium 9.1 mg/dL (8.5-10.5); Carbon Dioxide 30 mmol/L (22-29); Chloride 104 mmol/L (98-107); Creatinine Clr Calc Pharmacy 76.9044; Globulin 2.1 g/dL (1.3-4.6); Glomerular Filtration Rate 86.9 mL/min (90-130); Glucose 76 mg/dL (65-115); Iron 57 ug/dL (37-145); Lactate Dehydrogenase 190 U/L (135-214); Osmolality Calculated 288 mOsm/kg (285-295); Potassium 3.8 mmol/L (3.5-5.1); Sodium 140 mmol/L (136-145); Thyroid Stimulating Hormone 1.36 uIU/mL (0.27-4.20); Total Bilirubin 0.3 mg/dL (0.15-1.2); Total Iron Binding Capacity 219 mcg/dl; Total Protein 6.1 g/dL (6.6-8.7); Unsaturated Iron Binding 162 ug/dL (112-347)
[2024-11-26 11:04] LABS: Erythrocyte Sedimentation Rate 3 mm/hr (0-15)
== END 2024-11-27 23:59 | disposition home or self-care (01) ==
PROVIDERS: Nurse Practitioner; PCP Nurse Practitioner Family; Visit Provider Internal Medicine
DX: R76.8 Other specified abnormal immunological findings in serum (principal); M47.22 Other spondylosis with radiculopathy, cervical region
CPT/HCPCS: 36415; 80053; 83540; 83550; 83615; 84443; 85025; 85651

== ENCOUNTER 2024-12-18 09:48 | Oncology outpatient (recurring) (ONCR) | payer OTHER, SELFPAY ==
--- NOTE | 2024-12-18 09:45 | CTR_ITS ---
PROCEDURE INFORMATION: Exam: CT Abdomen And Pelvis With Contrast Exam date and time: 12/18/2024 10:18 AM Age: 54 years old Clinical indication: Abnormal findings; Abnormal radiologic finding of the abdomen; Radiologic exam and body structure: CT abd 05/06/24; Prior surgery; Surgery date: 6+ months; Surgery type: Gb; Additional info: Abnormal CT of the abdomen TECHNIQUE: Imaging protocol: Computed tomography of the abdomen and pelvis with contrast. Radiation optimization: All CT scans at this facility use at least one of these dose optimization techniques: automated exposure control; mA and/or kV adjustment per patient size (includes targeted exams where dose is matched to clinical indication); or iterative reconstruction. Contrast material: OMNI 350; Contrast volume: 100 ml; Contrast route: INTRAVENOUS (IV); COMPARISON: CT abdomen pelvis w con* [id number] 05/06/2024 3:48 PM RADIATION DOSE METRICS: Total DLP (mGy-cm): 720.61 FINDINGS: Liver: 16 mm caudate lobe cyst. Gallbladder and biliary ducts: Cholecystectomy. Pancreas: Normal. No ductal dilation. Spleen: Small cyst or hemangioma within the spleen. Adrenal glands: Normal. No mass. Kidneys and ureters: Normal. No hydronephrosis. Stomach and bowel: Unremarkable. No obstruction. No mucosal thickening. Appendix: No evidence of appendicitis. Intraperitoneal space: Unremarkable. No free air. No significant fluid collection. Vasculature: Unremarkable. No abdominal aortic aneurysm. Lymph nodes: Unremarkable. No enlarged lymph nodes. Urinary bladder: Unremarkable as visualized. Reproductive: Fluid within the endometrial canal. If this patient is postmenopausal that is abnormal. If this patient is postmenopausal ultrasound is recommended. Bones/joints: Unremarkable. No acute fracture. Soft tissues: Unremarkable. CT/CT abdomen pelvis w con* [id number] IMPRESSION: 1. Consider ultrasound of the reproductive organs. 2. Small hepatic cysts. 3. Splenic cysts or hemangiomata.
[2024-12-18] MEDS: iohexol 350 mg/mL 500 mL Btl (per mL) IV (10:13)
[2024-12-18] MEDS: iohexol 350 mg/mL 500 mL Btl (per mL) PO (10:13)
== END 2024-12-28 23:59 | disposition home or self-care (01) ==
LOC: RAD 09:48 → ONCMED 12-21 09:46
PROVIDERS: PCP Nurse Practitioner Family; Visit Provider Nurse Practitioner
DX: Z53.9 Procedure and treatment not carried out, unspecified reason (principal); R93.5 Abnormal findings on diagnostic imaging of other abdominal regions, including retroperitoneum; R76.8 Other specified abnormal immunological findings in serum; K76.89 Other specified diseases of liver; D73.4 Cyst of spleen
CPT/HCPCS: 74177

== ENCOUNTER → 2025-03-22 15:38 | Outpatient (BNVA) | payer OTHER, SELFPAY | PROVIDERS: PCP Nurse Practitioner Family; Visit Provider Internal Medicine Rheumatology | DX: Z79.899 Other long term (current) drug therapy (principal) | CPT/HCPCS: 36415; 80076; 82306; 82565; 85025; 85651; 86140 ==

== ENCOUNTER → 2025-09-13 14:06 | Outpatient (BNVA) | payer OTHER, SELFPAY | PROVIDERS: PCP Nurse Practitioner Family; Visit Provider Internal Medicine Rheumatology | DX: M06.041 Rheumatoid arthritis without rheumatoid factor, right hand (principal); M06.042 Rheumatoid arthritis without rheumatoid factor, left hand; Z79.899 Other long term (current) drug therapy | CPT/HCPCS: 36415; 80076; 82565; 85025; 85651; 86140 ==